=== PATIENT | female | born 1980 | race Caucasian/White ===

== ENCOUNTER 2021-02-10 07:58 | Outpatient (CLI) | payer BC, SELFPAY ==
--- NOTE | ~2021-02-10 | MMUS_ITS ---
EXAMINATION: MM diagnostic tyrese BI w tiffanie, US breast RT limited, US breast LT complete HISTORY: Right nipple discharge TECHNIQUE: Craniocaudal, mediolateral, and mediolateral oblique 3-D tomosynthesis images of the darrian ts were performed and synthetic 2-D images were generated. CAD analysis was submitted and interpreted . High resolution limited right and complete left breast ultrasound including all four quadrants and the subareolar breast was performed. COMPARISON: 08/24/2019, 03/13/2019, 08/07/2018 BREAST PARENCHYMAL COMPOSITION: The breasts are heterogeneously dense, which may obscure small masses . FINDINGS: MAMMOGRAPHIC FINDINGS: Right breast: There is no evidence of suspicious mass, calcification, or architectural distortion to suggest malignancy. There has been no suspicious interval change. No mammographic correlate is ident ified for the reported nipple discharge. Left breast: There are stable changes of excisional biopsy involving the subareolar breast. There is no evidence of suspicious mass, calcification, or architectural distortion to suggest malignancy. ULTRASOUND: Right breast: There is a 4 mm oval, circumscribed, parallel, hypoechoic mass with no posterior featur es or internal vascularity at the 10:00 location 8 cm from the nipple. No mammographic correlate is i dentified for the patient's reported nipple discharge. Left breast: Again seen are multiple similar appearing hypoechoic and anechoic masses scattered throu ghout the breast. None demonstrate suspicious interval change. A cluster of microcysts is noted at th e 1:00 location 5 cm from the nipple. IMPRESSION: 1. Multiple benign-appearing left breast masses and probably benign sonographically detected right br east mass. 2. Recommend 6 month follow-up right diagnostic mammogram and ultrasound. In addition, clinical follo w-up is recommended for the patient's nipple discharge as no mammographic or sonographic correlate is identified. BI-RADS category 3, probably benign findings. Reviewed, dictated and finalized at location A. IMPRESSION: 1. Multiple benign-appearing left breast masses and probably benign sonographic ally detected right breast mass. 2. Recommend 6 month follow-up right diagnostic mammogram and ultrasound. In ad dition, clinical follow-up is recommended for the patient's nipple discharge as no mammographic or sonographic correlate is identified. BI-RADS category 3, probably benign findings. IMPRESSION: 1. Multiple benign-appearing left breast masses and probably benign sonographic ally detected right breast mass. 2. Recommend 6 month follow-up right diagnostic mammogram and ultrasound. In ad dition, clinical follow-up is recommended for the patient's nipple discharge as no mammographic or sonographic correlate is identified. BI-RADS category 3, probably benign findings.
== END 2021-02-10 07:59 ==
PROVIDERS: Visit Provider Nurse Practitioner
DX: N64.52 Nipple discharge (principal); R92.8 Other abnormal and inconclusive findings on diagnostic imaging of breast
CPT/HCPCS: 76641; 76642; 77062; 77066; G0279